=== PATIENT | female | born 1995 | race Caucasian/White ===

== ENCOUNTER 2024-05-20 03:39 | Inpatient (IN) | payer BC ==
[2024-05-20] VITALS (63 sets, daily range): BP systolic 106–166; BP diastolic 55–93; PULSE 70–112; TEMP 97.5–98.1
[~2024-05-20] VITALS: Ht 167.6 cm; Wt 118.6 kg
--- NOTE | 2024-05-20 04:20 | NUR ---
G1 L0 PT OF DR MCRAE, 39.2 WEEKS, IN THIS MORNING FOR POSSIBLE SROM AT 0130. PT AMBULATORY TO UNIT, ACCOMPANIED BY SPOUSE AND STAFF. INSTRUCTED TO CHANGE INTO GOWN. THIS RN ENTERS ROOM AND DISCUSSES POC WITH PT AND SPOUSE WHILE PLACING MONITORS ON THE PT. PT REPORTS SHE WOKE UP AT 0130 DUE TO LEAKING FLUID, SHE THOUGHT SHE HAD VOIDED ON HERSELF. SHE GOT UP TO USE THE BATHROOM AND OVER THE NEXT HOUR OR SO SHE CONTINUED TO LEAK FLUID. PT DENIES ANY VAGINAL BLEEDING AND REPORTS GOOD MOVEMENT. DENIES ANY COMPLICATIONS WITH THIS .
[2024-05-20] MEDS ORDERED: LR 1,000 ML IV SCH (04:30)
[2024-05-20 05:30] LABS: BASO # 0.1 K/mm3 (0.0-0.2); BASO % 0.4 % (0.0-2.0); EOS # 0.2 K/mm3 (0.0-0.7); EOS % 1.3 % (0.0-4.0); GRAN # 9.7 K/mm3 (1.4-6.5); GRAN % 71.2 % (42.2-75.2); HEMOGLOBIN 11.7 g/dl (12.5-16.0); LYMPH # 2.4 K/mm3 (1.2-3.4); LYMPH % 17.7 % (20.0-51.0); MEAN CELL VOLUME 80 fl (80.0-100.0); MEAN CORPUSCULAR HEMOGLOBIN 26 pg (27-31); MEAN CORPUSCULAR HGB CONC 32 g/dl (33.0-37.0); MONO # 1.1 K/mm3 (0.1-0.6); PLATELET COUNT 312 K/mm3 (130-400); REDCELL DISTRIBUTION WIDTH-CV 14.3 % (11.5-14.5)
[2024-05-20 05:32] LABS: HEMATOCRIT 36.2 % (37.0-47.0)
[2024-05-20] MEDS ORDERED: LR & Oxytocin 500 ML IV SCH (07:00)
[2024-05-20] MEDS ORDERED: PRENATAL TABLET PO (07:03)
--- NOTE | 2024-05-20 07:45 | NUR ---
BEDSIDE ULTRASOUND PER , VERTEX PRESENTATION CONFIRMED.
--- NOTE | 2024-05-20 12:00 | NUR ---
DR MCRAE AT BEDSIDE ROUNDING ON PATIENT. DISCUSSES PLAN OF CARE. PT DENIES FURTHER QUESTIONS OR CONCERNS REGARDING CURRENT PLAN OF CARE. PITOCIN CONTINUES TO INFUSE AT 20MU, TITRATED PER ORDER. VORB PER "IF HER CONTRACTIONS WOULD START TO SPACE OUT, YOU CAN INCREASE HER PITOCIN TO A NEW MAX OF 30MU." CATEGORY 1 EFM TRACING AT THIS TIME, PT REPORTS INCREASED PAIN WITH CONTRACTIONS. DENIES NEED FOR EPIDURAL AT THIS TIME.
--- NOTE | 2024-05-20 14:20 | NUR ---
DIFFICULTY TRACING EFM DUE TO MATERNAL HABITUS AND POSITIONING FOR PAIN CONTROL ON BIRTHING BALL PER PT REQUEST. THIS RN REMAINS AT BEDSIDE THROUGHOUT FULL ENCOUNTER OF LIMITED TRACING. INTERMITTENT AUDIBLE HEART TONES AT BEDSIDE. EFM TRACING CATEGORY 1 PRIOR TO AND IMMEDIATE FOLLOWING EPISODE OF LIMITED TRACING. WILL CONTINUE WITH CONTINUOUS MONITORING TO THE BEST OF RN'S CAPABILITY PER ORDER.
[2024-05-20] MEDS ORDERED: ROPivacaine PF 0.2% 200 ML IV ONE (14:48)
[2024-05-20] MEDS ORDERED: diphenhydrAMINE 50 MG/ML 1 ML VIAL IV PRN (15:30)
[2024-05-20] MEDS ORDERED: diphenhydrAMINE 25 MG CAP PO PRN (15:30)
[2024-05-20] MEDS ORDERED: Naloxone 0.4 MG/ML VIAL IV PRN (15:30)
[2024-05-20] MEDS ORDERED: Ondansetron 4 MG/2 ML VIAL IV PRN (15:30)
[2024-05-20] MEDS ORDERED: ePHEDrine 50 MG/10 ML VIAL IV PRN (15:30)
--- NOTE | 2024-05-20 15:47 | NUR ---
UNABLE TO TRACE FHR DUE TO MATERNAL POSITION DURING EPIDURAL PLACEMENT. LR BOLUS INFUSING MATERNAL VSS.
--- NOTE | 2024-05-20 20:15 | NUR ---
2000: DR WELSH ON THE UNIT 2004: DR WELSH AT THE BEDSIDE DISCUSSING POC WITH PT AND SPOUSE. SVE BY DR WELSH . DR WELSH DISCUSSES THE PLACEMENT OF AN IUPC AT THIS TIME AND WHY IT IS NECESSARY. PT AGREES. 2006: IUPC PLACED AND TRACING CTX WELL. DR WELSH INFORMS PT AND THIS RN THAT HE WOULD LIKE HER CHECKED AT 2200 AND THEN DETERMINE POC AT THAT TIME. PT AND SPOUSE AGREEABLE.
[2024-05-20] MEDS ORDERED: Gentamicin/Sodium Chloride 100 ML IV SCH (20:30)
[2024-05-21] VITALS (12 sets, daily range): BP systolic 110–181; BP diastolic 60–141; PULSE 72–105; TEMP 97.4–98.7
[2024-05-21] MEDS ORDERED: Naloxone 0.4 MG/ML VIAL IV PRN (00:15)
[2024-05-21] MEDS ORDERED: Ibuprofen 600 MG TAB PO SCH (00:15)
[2024-05-21] MEDS ORDERED: Mag/Al Hydrox/Simeth Susp 30 ML CUP PO PRN (00:15)
[2024-05-21] MEDS ORDERED: oxyCODONE 5 MG TAB PO PRN (00:15)
[2024-05-21] MEDS ORDERED: Witch Hazel 50% Pads Bulk TUB TP PRN (00:15)
[2024-05-21] MEDS ORDERED: Phenylephrine/Mineral Oil/Petrolatum 57 GM TUBE RC PRN (00:15)
[2024-05-21] MEDS ORDERED: Magnes Hydrox (MOM) 80 MG/ML 30 ML CUP PO PRN (00:15)
[2024-05-21] MEDS ORDERED: Loratadine 10 MG TAB PO PRN (00:15)
[2024-05-21] MEDS ORDERED: Measles/Mumps/Rubella Virus Vaccine Live w Diluent 0.5 ML VIAL SQ SCH (00:15)
[2024-05-21] MEDS ORDERED: Acetaminophen 500 MG TAB PO SCH (00:15)
[2024-05-21] MEDS ORDERED: Sennosides/Docusate 8.6-50 MG TAB PO SCH (08:00)
[2024-05-21] MEDS ORDERED: Rho(D) Imm Globulin 1,500 UNITS (300 MCG)/2 ML SYRINGE IV\\IM SCH (19:00)
[2024-05-21] MEDS ORDERED: traZODone 50 MG TAB PO PRN (21:00)
[2024-05-22 00:50] VITALS: BP 126/68; PULSE 78; TEMP 98.3
[2024-05-22 07:30] VITALS: BP 126/73; PULSE 80; TEMP 98.2
[2024-05-22] MEDS ORDERED: IBU600 MG PO (08:38)
--- NOTE | 2024-05-22 13:00 | NUR ---
ALL DC PAPERWORK, INSTRUCTIONS AND FOLLOW UP APPOINTMENTS REVIEWED AND UNDERSTOOD. PT DENIES FURTHER QUESTIONS OR CONCERNS. AMBULATORY FROM UNIT IN STABLE CONDITION AT THIS TIME.
== END 2024-05-22 13:00 | disposition home or self-care (01) | DRG 807 ==
LOC: LDRO 03:39 → OB 04:15 → LDR 04:15 → OB 05-21 02:30
PROVIDERS: Obstetrics & Gynecology; ADMIT Obstetrics & Gynecology
PROC: 10E0XZZ Delivery of Products of Conception, External Approach (ICD-10-PCS; principal; 2024-05-21)
PROC: 0KQM0ZZ Repair Perineum Muscle, Open Approach (ICD-10-PCS; 2024-05-21)
PROC: 0UQMXZZ Repair Vulva, External Approach (ICD-10-PCS; 2024-05-21)
DX: O99.214 Obesity complicating childbirth (principal); Z37.0 Single live birth; Z3A.39 39 weeks gestation of pregnancy; O76 Abnormality in fetal heart rate and rhythm complicating labor and delivery; O69.81X0 Labor and delivery complicated by cord around neck, without compression, not applicable or unspecified; O70.1 Second degree perineal laceration during delivery; Z23 Encounter for immunization
CPT/HCPCS: J0290; J1580; J2405; J2590; J2791; J2795; J7120